=== PATIENT | female | born 1965 | race African-American/Black ===

== ENCOUNTER 2020-07-23 11:12 | Emergency (ER) | payer MEDICAID ==
[~2020-07-23] VITALS: Ht 172.7 cm; Wt 73.0 kg
[2020-07-23] MEDS ORDERED: ALBUTEROL (0.083%) 2.5MG/3ML NEB HHN STA (11:24)
[2020-07-23] MEDS ORDERED: METHYLPREDNISOLONE SOD SUCC 125 MG/2 ML VIAL IV STA (11:24)
[2020-07-23] MEDS ORDERED: MAGNESIUM 1 G PREMIX 100 ML IV ONE (11:30)
[2020-07-23 11:42] LABS: EOSINOPHILS % 9.3 % (0.0-5.0); HEMATOCRIT. 44.7 % (36.0-48.0); HEMOGLOBIN. 14.7 g/dL (12.0-16.0); LYMPHOCYTES % 52.9 % (20.0-50.0); MEAN CORPUSCULAR HEMOGLOBIN 28.6 pg (28.0-32.0); MEAN CORPUSCULAR VOLUME 87.1 fL (81.0-99.0); MEAN PLATELET VOLUME 10.4 fl (7.4-10.4); MONOCYTES % 7.5 % (2.0-8.0); NEUTROPHILS % 29.3 % (40.0-76.0); PLATELET 240 x1000/uL (130-400); RED BLOOD CELL COUNT 5.14 mill/uL (4.2-5.4); RED CELL DISTRIBUTION WIDTH 13.4 % (11.6-14.6)
[2020-07-23 11:47] LABS: CHLORIDE 109 mEq/L (98-107)
[2020-07-23 11:51] LABS: PROTHROMBIN TIME 10.3 sec (9.6-11.0)
[2020-07-23] MEDS ORDERED: P20 MT (12:59)
[2020-07-23] MEDS ORDERED: ALBU6.7H11 INH (12:59)
[2020-07-23 13:22] VITALS: BP 127/76
== END 2020-07-23 13:45 | disposition home or self-care (01) ==
LOC: ER 11:12 → CANBEDREQ 15:06
DX: J45.901 Unspecified asthma with (acute) exacerbation (principal); I10 Essential (primary) hypertension; Z98.890 Other specified postprocedural states; Z20.822 Contact with and (suspected) exposure to COVID-19
CPT/HCPCS: 36415; 71045; 80053; 83605; 84145; 84484; 85025; 85610; 87040; 87635; 93005; 96365; 96375; 99285; C9803; J2930; J3475; Z7610